=== PATIENT | female | born 1980 | race Asian ===

== ENCOUNTER 2018-10-12 12:05 | Emergency (ER) | payer BC, OTHER ==
[2018-10-12 12:11] VITALS: BP 144/94; PULSE 82; TEMP 98.2; BMI 36.1
--- NOTE | 2018-10-12 12:48 | PDOC ---
History of Present Illness - General Chief Complaint: Note to return to work Stated Complaint: BROKEN GLASS NO INJURY Time Seen by Provider: 10/12/18 12:07 - History of Present Illness Initial Comments: 10/12/18 14:16 Chief complaint: Work-related injury History of present illness: Patient was in a room at work, and the child threw a rock through window, which shattered behind her. She was not struck with any glass, has no injuries of which she is aware, but was sent by the facility for examination Review of systems: Entirely systems reviewed and negative Past medical history: No significant medical or surgical problems past her present, no medications Social/family history reviewed and noncontributory Physical exam: Alert and oriented well-developed well-nourished no acute distress cheerful and cooperative area no complaints Afebrile, vital signs normal HEENT clear. There is no evidence of glass shards or debris in the scalp, eyes, nose, mouth. There is no conjunctival irritation. Neck supple without bruit mass or nodes Chest clear CV regular without murmur or gallop Abdomen benign Neurological intact Extremities without visible or palpable trauma Impression: Broken window collapsed behind her, but the patient suffered no apparent injury Plan: Reassurance follow-up as needed. Fully ambulatory and in no distress on discharge Past History - Past Medical History Allergies/Adverse Reactions: Allergies Allergy/AdvReac Type Severity Reaction Status Date / Time No Known Drug Allergies Allergy Verified 10/12/18 12:06 COPD: No - Suicide/Smoking/Psychosocial Hx Smoking History: Never smoked Have you smoked in the past 12 months: No Information on smoking cessation initiated: No Hx Alcohol Use: No Drug/Substance Use Hx: No Substance Use Type: None Hx Substance Use Treatment: No *Physical Exam - Vital Signs Last Vital Signs Temp Pulse Resp BP Pulse Ox 98.2 F 82 20 144/94 100 10/12/18 12:05 10/12/18 12:05 10/12/18 12:05 10/12/18 12:05 10/12/18 12:05 *DC/Admit/Observation/Transfer Diagnosis at time of Disposition: Work related injury - Discharge Dispostion Disposition: HOME Condition at time of disposition: Stable Decision to Admit order: No - Referrals - Patient Instructions Additional Instructions: Recheck primary physician 1-2 days if any symptoms develop - Post Discharge Activity Forms/Work/School Notes: Back to Work
== END 2018-10-12 12:53 | disposition home or self-care (01) ==
LOC: FER 12:05
DX: Z04.2 Encounter for examination and observation following work accident (principal); X58.XXXA Exposure to other specified factors, initial encounter; Y93.89 Activity, other specified; Y92.89 Other specified places as the place of occurrence of the external cause; Y99.0 Civilian activity done for income or pay
CPT/HCPCS: 99281-25

== ENCOUNTER 2024-03-19 15:55 | Emergency (ER) | payer BC ==
[2024-03-19 16:02] VITALS: BMI 39.0
[2024-03-19] MEDS ORDERED: LIDOCAINE 4% PATCH TP ONE (17:58)
[2024-03-19] MEDS ORDERED: METHOCARBAMOL 500 MG TABLET ONE (17:59)
[2024-03-19] MEDS ORDERED: ACETAMINOPHEN 500 MG TABLET (FP) ONE (17:59)
[2024-03-19] MEDS ORDERED: KETOROLAC TROMETHAMINE 30 MG/1 ML VIAL ONE (18:03)
[2024-03-19] MEDS: LIDOCAINE 4% PATCH TP ONE (18:08)
[2024-03-19] MEDS: KETOROLAC TROMETHAMINE 30 MG/1 ML VIAL IM ONE (18:08)
[2024-03-19] MEDS: ACETAMINOPHEN 500 MG TABLET (FP) PO ONE (18:09)
[2024-03-19] MEDS: METHOCARBAMOL 750 MG TABLET PO ONE (18:10)
[2024-03-19] MEDS ORDERED: METOCLOPRAMIDE HCL INJECTION 10 MG/2 ML VIAL ONE (19:21)
[2024-03-19 19:35] VITALS: BP 126/71; PULSE 70; RESP 20; TEMP 98.1
[2024-03-19] MEDS: METOCLOPRAMIDE HCL INJECTION 10 MG/2 ML VIAL IVPUSH ONE (19:52)
[2024-03-19] MEDS ORDERED: LIDOCAINE PATCH REMOVAL MC SCH (22:00)
== END 2024-03-19 21:44 | disposition home or self-care (01) ==
LOC: JER 15:55
PROC: 3E033GC Introduction of Other Therapeutic Substance into Peripheral Vein, Percutaneous Approach (ICD-10-PCS; principal; 2024-03-19)
PROC: 3E0233Z Introduction of Anti-inflammatory into Muscle, Percutaneous Approach (ICD-10-PCS; 2024-03-19)
DX: R51.9 Headache, unspecified (principal); M54.2 Cervicalgia; M62.838 Other muscle spasm; W10.9XXA Fall (on) (from) unspecified stairs and steps, initial encounter
CPT/HCPCS: 70450-TC; 99284-25